=== PATIENT | female | born 1985 | race Caucasian/White ===

== ENCOUNTER 2017-05-17 08:16 | Day surgery (SDC) | payer OTHER ==
[~2017-05-17] VITALS: Ht 162.6 cm; Wt 61.8 kg
[2017-05-17 08:42] VITALS: BP 104/71; PULSE 64; TEMP 97.8
[2017-05-17] MEDS ORDERED: MULTI VITAMINS1 TAB PO (08:45)
[2017-05-17] MEDS ORDERED: VALTREX 50500 MG/TAB PO (08:45)
[2017-05-17] MEDS ORDERED: COLACE 100100 MG/CAP PO (08:46)
[2017-05-17] MEDS ORDERED: MIRALAX PA17 GM/Dose PO (08:46)
[2017-05-17 11:10] VITALS: BP 107/75; PULSE 67; TEMP 98.4
[2017-05-17 11:25] VITALS: BP 106/68; PULSE 71
[2017-05-17 11:40] VITALS: BP 104/68; PULSE 75
[2017-05-17 11:55] VITALS: BP 107/64; PULSE 67
== END 2017-05-17 12:10 | disposition home or self-care (01) ==
LOC: SDCO 08:16
DX: K59.09 Other constipation (principal); R19.7 Diarrhea, unspecified; Z80.0 Family history of malignant neoplasm of digestive organs; R63.4 Abnormal weight loss; D50.9 Iron deficiency anemia, unspecified; R11.2 Nausea with vomiting, unspecified; K64.0 First degree hemorrhoids; R63.0 Anorexia
CPT/HCPCS: OP; J2250; J3010; J7030